=== PATIENT | female | born 1985 | race African-American/Black ===

== ENCOUNTER 2019-10-25 19:07 | Emergency (ER) | payer MEDICAID ==
[~2019-10-25] VITALS: Ht 172.7 cm; Wt 59.0 kg
[2019-10-25] MEDS ORDERED: MORPHINE SULFATE 4 MG/ML CPJ (NOT FOR IM USE) IV STA (21:14)
[2019-10-25] MEDS ORDERED: ONDANSETRON HCL 4MG/2ML INJ IV STA (21:14)
[2019-10-25] MEDS ORDERED: SODIUM CHLORIDE 0.9% 1,000 ML IV ONE (21:14)
[2019-10-25 21:49] LABS: BASOPHILS % 0.4 % (0.0-2.0); HEMATOCRIT. 35.7 % (36.0-48.0); HEMOGLOBIN. 11.9 g/dL (12.0-16.0); LYMPHOCYTES % 35.2 % (20.0-50.0); MEAN CORPUSCULAR HEMOGLOBIN 31.6 pg (28.0-32.0); MEAN CORPUSCULAR VOLUME 95.1 fL (81.0-99.0); MEAN PLATELET VOLUME 7.3 fl (7.4-10.4); MONOCYTES % 7.5 % (2.0-8.0); NEUTROPHILS % 54.9 % (40.0-76.0); PLATELET 361 x1000/uL (130-400); RED BLOOD CELL COUNT 3.76 mill/uL (4.2-5.4); RED CELL DISTRIBUTION WIDTH 14.2 % (11.6-14.6)
[2019-10-25 21:51] LABS: CLARITY URINE CLOUDY (CLEAR); COLOR URINE YELLOW (YELLOW); KETONES URINE TRACE (NEGATIVE); LEUKOCYTE ESTERASE URINE 2+ (NEGATIVE); NITRITE URINE POSITIVE (NEGATIVE); OCCULT BLOOD URINE NEGATIVE (NEGATIVE); PH URINE 6.5 (4.5-8.0); PROTEIN URINE TRACE (NEGATIVE); SPECIFIC GRAVITY URINE 1.024 (1.005-1.030)
[2019-10-25 21:54] LABS: CHLORIDE 108 mEq/L (98-107)
[2019-10-25 21:57] LABS: PROTHROMBIN TIME 9.8 sec (9.6-11.0)
[2019-10-25 22:05] LABS: B-HCG QUANTITATIVE < 1 mIU/mL (<3)
[2019-10-25] MEDS ORDERED: HYDROCODONE/ACETAMINOPHEN 5/325MG TABLET PO ONE (22:45)
[2019-10-25] MEDS ORDERED: CEFTRIAXONE 1 G PREMIX 50 ML IV NR (22:45)
[2019-10-25] MEDS ORDERED: KETOROLAC 15MG/ML VIAL IV ONE (22:45)
[2019-10-25] MEDS ORDERED: IOHEXOL-300 100 ML BOTTLE ONE (23:09)
[2019-10-26] MEDS ORDERED: HYDROCODONE/ACETAMINOPHEN 5/325MG TABLET PO ONE (01:00)
[2019-10-26 02:43] VITALS: BP 92/47
== END 2019-10-26 05:12 | disposition home or self-care (01) ==
LOC: ER 19:07
DX: N39.0 Urinary tract infection, site not specified (principal)
CPT/HCPCS: 36415; 74177; 80053; 81003; 83690; 84702; 85025; 85610; 87077; 87086; 87186; 96365; 96375; 96376; 99284; J0696; J1885; J2270; J2405; J7030; Q9967; Z7610

== ENCOUNTER 2020-08-16 09:15 | Emergency (ER) | payer MEDICAID ==
[~2020-08-16] VITALS: Ht 167.6 cm; Wt 63.0 kg
[2020-08-16] MEDS ORDERED: ONDANSETRON HCL 4MG/2ML INJ IV STA (10:05)
[2020-08-16] MEDS ORDERED: MORPHINE SULFATE 4 MG/ML CPJ (NOT FOR IM USE) IV STA (10:05)
[2020-08-16 10:11] VITALS: BP 148/82
[2020-08-16] MEDS ORDERED: SODIUM CHLORIDE 0.9% 1,000 ML IV ONE (10:15)
[2020-08-16 10:31] LABS: BASOPHILS % 0.3 % (0.0-2.0); HEMATOCRIT. 40.2 % (36.0-48.0); HEMOGLOBIN. 13.8 g/dL (12.0-16.0); LYMPHOCYTES % 8.9 % (20.0-50.0); MEAN CORPUSCULAR HEMOGLOBIN 32.7 pg (28.0-32.0); MEAN CORPUSCULAR VOLUME 95.4 fL (81.0-99.0); MEAN PLATELET VOLUME 7.2 fl (7.4-10.4); MONOCYTES % 4.1 % (2.0-8.0); NEUTROPHILS % 86.7 % (40.0-76.0); PLATELET 387 x1000/uL (130-400); RED BLOOD CELL COUNT 4.21 mill/uL (4.2-5.4); RED CELL DISTRIBUTION WIDTH 13.5 % (11.6-14.6)
[2020-08-16 10:35] LABS: CHLORIDE 104 mEq/L (98-107)
[2020-08-16 10:35] LABS: CLARITY URINE CLOUDY (CLEAR); COLOR URINE YELLOW (YELLOW); KETONES URINE 3+ (NEGATIVE); LEUKOCYTE ESTERASE URINE NEGATIVE (NEGATIVE); NITRITE URINE POSITIVE (NEGATIVE); OCCULT BLOOD URINE NEGATIVE (NEGATIVE); PH URINE 5.5 (4.5-8.0); PROTEIN URINE 1+ (NEGATIVE)
[2020-08-16 10:42] LABS: HCG SCREEN NEGATIVE; INR 0.9
== END 2020-08-16 11:53 | disposition home or self-care (01) ==
LOC: ER 09:15
DX: N39.0 Urinary tract infection, site not specified (principal); R11.2 Nausea with vomiting, unspecified; M32.9 Systemic lupus erythematosus, unspecified; Z98.890 Other specified postprocedural states
CPT/HCPCS: 36415; 80053; 81003; 81025; 83690; 84703; 85025; 85610; 93005; 96361; 96374; 96375; 99284; J2270; J2405; J7030

== ENCOUNTER 2021-12-04 08:11 | Emergency (ER) | payer MEDICAID ==
[~2021-12-04] VITALS: Ht 167.6 cm; Wt 50.0 kg
[2021-12-04 08:12] VITALS: BP 122/83
[2021-12-04 09:51] LABS: BASOPHILS % 0.2 % (0.0-2.0); EOSINOPHILS % 0.1 % (0.0-5.0); HEMATOCRIT. 40.5 % (36.0-48.0); HEMOGLOBIN. 13.5 g/dL (12.0-16.0); LYMPHOCYTES % 9.1 % (20.0-50.0); MEAN CORPUSCULAR HEMOGLOBIN 31.7 pg (28.0-32.0); MEAN CORPUSCULAR VOLUME 94.6 fL (81.0-99.0); NEUTROPHILS % 86.6 % (40.0-76.0); PLATELET 446 x1000/uL (130-400); RED BLOOD CELL COUNT 4.28 mill/uL (4.2-5.4); RED CELL DISTRIBUTION WIDTH 13.6 % (11.6-14.6)
[2021-12-04 10:01] LABS: CHLORIDE 104 mEq/L (98-107)
[2021-12-04 10:02] LABS: HCG SCREEN NEGATIVE
[2021-12-04] MEDS ORDERED: PROT40 MT (12:05)
[2021-12-04] MEDS ORDERED: MAG355OR21 MT (12:07)
== END 2021-12-04 11:50 | disposition home or self-care (01) ==
LOC: ER 08:11
DX: K29.00 Acute gastritis without bleeding (principal); M32.9 Systemic lupus erythematosus, unspecified; F12.10 Cannabis abuse, uncomplicated
CPT/HCPCS: 36415; 80048; 80076; 84703; 85025; 93005; 99284